=== PATIENT | female | born 1995 | race Hispanic/Latino ===

== ENCOUNTER 2024-12-01 20:19 | Inpatient (IN) | payer OTHER ==
[~2024-12-01] VITALS: Ht 157.5 cm; Wt 77.1 kg
[2024-12-01 21:13] LABS: BASOPHILS % 0.4 % (0.0-1.0); EOSINOPHILS % 4.9 % (0.0-6.0); LYMPHOCYTES % 32.8 % (18.0-39.1); MONOCYTES % 5.0 % (4.4-11.3); NEUTROPHILS % 56.7 % (38.7-80.0); RED CELL DISTRIBUTION WIDTH 12.0 % (11.7-14.4)
[2024-12-01 21:31] LABS: EST GLOMERULAR FILTRATION RATE 115.0 ML/MIN (>=60)
[2024-12-01] MEDS: ONDANSETRON HCL INJ 2MG/ML 2ML 2 MG/ML VIAL IV STA (21:38)
[2024-12-01] MEDS: SODIUM CHLORIDE 0.9% 1000ML 1,000 ML IV SCH (21:46)
[2024-12-02] VITALS (11 sets, daily range): BP systolic 95–130; BP diastolic 55–90; PULSE 75–105; RESP 16–20; TEMP 97.7–98.2; O2SAT 95–100
[2024-12-02] MEDS: KETOROLAC TROMETHAMINE 30 MG/ML VIAL IV STA (01:41)
[2024-12-02] MEDS: SODIUM CHLORIDE 0.9% 1000ML 1,000 ML IV SCH (02:35)
[2024-12-02] MEDS: ONDANSETRON HCL INJ 2MG/ML 2ML 2 MG/ML VIAL IV PRN (02:56)
[2024-12-02] MEDS: Morphine 2mg Syringe 2 MG/ML SYR IV PRN (02:56)
[2024-12-02 15:29] LABS: T3 UPTAKE 31.53 % (22.5-37.0)
[2024-12-02] MEDS: PROMETHAZINE 12.5MG/ NACL 0.9% 12.5 MG/50 ML BAG IV PRN (20:40)
[2024-12-02] MEDS: HYDROMORPHONE 1MG/1ML INJ IV PRN (20:40)
[2024-12-03] VITALS (7 sets, daily range): BP systolic 96–104; BP diastolic 50–65; PULSE 73–95; RESP 16–20; TEMP 97.8–98.6; O2SAT 98–100
[2024-12-03 05:33] LABS: BASOPHILS % 0.3 % (0.0-1.0); EOSINOPHILS % 5.9 % (0.0-6.0); LYMPHOCYTES % 34.3 % (18.0-39.1); MONOCYTES % 5.5 % (4.4-11.3); NEUTROPHILS % 53.7 % (38.7-80.0); RED CELL DISTRIBUTION WIDTH 11.9 % (11.7-14.4)
[2024-12-03 06:09] LABS: EST GLOMERULAR FILTRATION RATE 99.0 ML/MIN (>=60)
[2024-12-04] VITALS (8 sets, daily range): BP systolic 97–113; BP diastolic 66–84; PULSE 72–96; RESP 16–20; TEMP 97.8–98.3; O2SAT 96–100
[2024-12-04 01:03] LABS: AMPHETAMINES SCREEN,URINE NEGATIVE (NEGATIVE); OPIATES SCREEN,URINE POSITIVE (NEGATIVE)
[2024-12-04 01:04] LABS: CANNABINOIDS SCREEN,URINE NEGATIVE (NEGATIVE); COCAINE SCREEN,URINE NEGATIVE (NEGATIVE); METHADONE SCREEN, URINE NEGATIVE (NEGATIVE)
[2024-12-04] MEDS: PANTOPRAZOLE SOD 40 MG TABEC PO SCH (08:55)
[2024-12-04] MEDS ORDERED: CLONAZEPAM1 MG PO (09:21)
[2024-12-04] MEDS ORDERED: TIZANIDINE HCL4 MG PO (09:21)
[2024-12-04] MEDS ORDERED: HYDROCODONE/APAP 7.5MG-325MG 1 EA TAB PO PRN (14:00)
[2024-12-04] MEDS: CLONAZEPAM 1 MG TAB PO PRN (15:28)
[2024-12-04] MEDS ORDERED: TIZANIDINE HCL 4 MG TAB PO PRN (17:00)
[2024-12-05] VITALS (11 sets, daily range): BP systolic 102–129; BP diastolic 58–96; PULSE 84–110; RESP 16–20; TEMP 98–98.3; O2SAT 97–100
[2024-12-05 05:45] LABS: CHOL/HDL RATIO 5.5 (3.0-3.6); EST GLOMERULAR FILTRATION RATE 120.0 ML/MIN (>=60); LDL CHOLESTEROL 95.0 MG/DL (60-130); PHOSPHORUS 4.1 MG/DL (2.3-4.7)
[2024-12-06 00:43] VITALS: BP 99/60; PULSE 89; RESP 17; TEMP 97.9; O2SAT 100
[2024-12-06 04:23] VITALS: BP 107/59; PULSE 95; RESP 16; TEMP 97.9; O2SAT 100
[2024-12-06 08:18] VITALS: BP 101/71; PULSE 98; RESP 18; TEMP 98.6; O2SAT 98
[2024-12-06 10:45] VITALS: BP 101/71; PULSE 98; RESP 18; TEMP 98.6; O2SAT 98
== END 2024-12-06 10:51 | disposition home or self-care (01) | DRG 103 ==
LOC: ER 20:45 → ERHOLD 12-02 01:55 → MED/SURG 12-02 02:29 → OBSVTOIN 12-03 17:57
PROVIDERS: ADMIT Internal Medicine; ATTEND Internal Medicine
DX: G43.809 Other migraine, not intractable, without status migrainosus (principal); G90.A Postural orthostatic tachycardia syndrome [POTS]; G90.1 Familial dysautonomia [Riley-Day]; F43.10 Post-traumatic stress disorder, unspecified; I34.1 Nonrheumatic mitral (valve) prolapse; F41.9 Anxiety disorder, unspecified; R01.1 Cardiac murmur, unspecified; R10.13 Epigastric pain; R11.2 Nausea with vomiting, unspecified; R94.31 Abnormal electrocardiogram [ECG] [EKG]; R53.1 Weakness; M47.816 Spondylosis without myelopathy or radiculopathy, lumbar region; M47.817 Spondylosis without myelopathy or radiculopathy, lumbosacral region; G89.29 Other chronic pain; Z91.419 Personal history of unspecified adult abuse
CPT/HCPCS: 36415; 70450; 70544; 70551; 71045; 72125; 72131; 74176; 80048; 80053; 80061; 80307; 80320; 82550; 83036; 83735; 84100; 84436; 84443; 84479; 84484; 84702; 85025; 93005; 93306; 93880; 94799; 95819; 99284; G0378; J1171; J1885; J2270; J2405; J2470; J2550; J7030

== ENCOUNTER → 2024-12-26 | Outpatient (REF) | payer OTHER ==
[~2024-12-26] MED LIST: CLONAZEPAM1 MG PO; TIZANIDINE HCL4 MG PO
== END ==
LOC: EDSTATUS 13:00 → MRI 13:08
PROVIDERS: ATTEND Physical Medicine & Rehabilitation Pain Medicine
DX: M54.16 Radiculopathy, lumbar region (principal); M54.6 Pain in thoracic spine
CPT/HCPCS: 72146; 72148

== ENCOUNTER 2025-01-20 16:47 | Inpatient (IN) | payer OTHER ==
[~2025-01-20] VITALS: Ht 154.9 cm; Wt 83.9 kg
[2025-01-20] MEDS: DIPHENHYDRAMINE HCL INJ 50 MG/ML VIAL IV ONE (17:43)
[2025-01-20] MEDS: METHYLPREDNISOLONE SOD SUCC 125 MG/2ML VIAL IV STA (17:43)
[2025-01-20] MEDS: SODIUM CHLORIDE 0.9% 1000ML 1,000 ML IV STA (17:43)
[2025-01-20 17:55] LABS: BASOPHILS % 0.3 % (0.0-1.0); EOSINOPHILS % 2.5 % (0.0-6.0); LYMPHOCYTES % 24.6 % (18.0-39.1); MONOCYTES % 4.5 % (4.4-11.3); NEUTROPHILS % 67.8 % (38.7-80.0); RED CELL DISTRIBUTION WIDTH 11.9 % (11.7-14.4)
[2025-01-20] MEDS: FAMOTIDINE 20 MG/2 ML VIAL IV STA (18:05)
[2025-01-20 18:12] LABS: EST GLOMERULAR FILTRATION RATE 121.0 ML/MIN (>=60)
[2025-01-20] MEDS: DIAZEPAM INJ 5 MG/ML 2 ML IV STA (18:54)
[2025-01-20 20:41] VITALS: TEMP 98.1
[2025-01-20 21:00] VITALS: BP 122/84; PULSE 87; RESP 18; TEMP 98.1; O2SAT 100
[2025-01-20 21:22] VITALS: PULSE 88; RESP 16
[2025-01-20 21:28] VITALS: PULSE 92; RESP 18; O2SAT 100
[2025-01-20 21:54] VITALS: BP 122/84; PULSE 87; RESP 18; TEMP 98.1; O2SAT 100
[2025-01-20] MEDS: ONDANSETRON HCL INJ 2MG/ML 2ML 2 MG/ML VIAL IV PRN (22:37)
[2025-01-20] MEDS: SODIUM CHLORIDE 0.9% 1000ML 1,000 ML IV SCH (22:38)
[2025-01-20] MEDS: SODIUM CHLORIDE FLUSH 10 ML SYR IV PRN (22:38)
[2025-01-20] MEDS: Morphine 4mg INJECTION 4 MG/ML INJ IV PRN (22:38)
[2025-01-20 23:00] VITALS: BP 122/84; PULSE 87; RESP 19; TEMP 98.1; O2SAT 100
[2025-01-21] VITALS (12 sets, daily range): BP systolic 95–110; BP diastolic 58–75; PULSE 63–92; RESP 15–20; TEMP 97.8–98.4; O2SAT 98–100
[2025-01-21] MEDS: PROMETHAZINE 12.5MG/ NACL 0.9% 12.5 MG/50 ML BAG IV PRN (01:07)
[2025-01-21 06:59] LABS: BASOPHILS % 0.1 % (0.0-1.0); EOSINOPHILS % 0.0 % (0.0-6.0); LYMPHOCYTES % 8.5 % (18.0-39.1); MONOCYTES % 1.1 % (4.4-11.3); NEUTROPHILS % 89.9 % (38.7-80.0); RED CELL DISTRIBUTION WIDTH 11.9 % (11.7-14.4)
[2025-01-21] MEDS: DIAZEPAM INJ 5 MG/ML 2 ML IV STA (07:24)
[2025-01-21 07:32] LABS: EST GLOMERULAR FILTRATION RATE 124.0 ML/MIN (>=60)
[2025-01-21] MEDS ORDERED: ALBUTEROL SULF 0.083% NEB SOLN 3 ML NEB NEB PRN (17:45)
[2025-01-21] MEDS: DIPHENHYDRAMINE HCL INJ 50 MG/ML VIAL IV PRN (21:08)
[2025-01-21] MEDS: PROPRANOLOL HCL 10 MG TAB PO SCH (21:09)
[2025-01-21] MEDS: MECLIZINE HCL 12.5 MG TAB PO PRN (21:09)
[2025-01-22] VITALS (9 sets, daily range): BP systolic 90–100; BP diastolic 55–66; PULSE 55–84; RESP 17–20; TEMP 97.5–98; O2SAT 98–100
[2025-01-22] MEDS: CLONAZEPAM 1 MG TAB PO PRN (10:12)
[2025-01-22] MEDS ORDERED: POLYETHYLENE GLYCOL 3350 17 GM PACK PO PRN (11:15)
[2025-01-22] MEDS: DOCUSATE SODIUM 100 MG CAP PO ONE (12:13)
[2025-01-22] MEDS ORDERED: SUMATRIPTAN SUCCINATE 25 MG TAB PO PRN (12:15)
[2025-01-22] MEDS: SUMATRIPTAN SUCCINATE 25 MG TAB PO ONE (12:38)
[2025-01-22] MEDS: DOCUSATE SODIUM 100 MG CAP PO SCH (17:13)
[2025-01-22] MEDS: ACETAMIN/BUTALBITAL/CAFFEINE TAB PO PRN (21:21)
[2025-01-22] MEDS: PROPRANOLOL HCL 10 MG TAB PO SCH (21:22)
[2025-01-23] MEDS: SODIUM CHLORIDE 0.9% 1000ML 1,000 ML IV SCH (00:31)
[2025-01-23] MEDS: TIZANIDINE HCL 4 MG TAB PO PRN (00:31)
[2025-01-23 03:28] VITALS: BP 96/58; PULSE 76; RESP 18; TEMP 97.5; O2SAT 100
[2025-01-23 07:07] VITALS: PULSE 87; RESP 22; O2SAT 99
[2025-01-23 08:00] VITALS: BP 105/61; PULSE 66; RESP 18; TEMP 98.1; O2SAT 100
[2025-01-23 09:00] VITALS: BP 105/61; PULSE 66; RESP 18; TEMP 98.1; O2SAT 100
[2025-01-23 09:09] LABS: BASOPHILS % 0.4 % (0.0-1.0); EOSINOPHILS % 3.8 % (0.0-6.0); LYMPHOCYTES % 32.4 % (18.0-39.1); MONOCYTES % 5.2 % (4.4-11.3); NEUTROPHILS % 57.9 % (38.7-80.0); RED CELL DISTRIBUTION WIDTH 12.0 % (11.7-14.4)
[2025-01-23 09:37] LABS: EST GLOMERULAR FILTRATION RATE 122.0 ML/MIN (>=60)
[2025-01-23 12:00] VITALS: BP 96/63; PULSE 61; RESP 17; TEMP 98.2; O2SAT 100
[2025-01-23] MEDS ORDERED: INDERAL10 MG PO (13:56)
== END 2025-01-23 16:35 | disposition home or self-care (01) | DRG 916 ==
LOC: ER 17:30 → ERHOLD 20:53 → MED/SURG3 21:39
PROVIDERS: ADMIT Internal Medicine; ATTEND Internal Medicine
DX: T78.2XXA Anaphylactic shock, unspecified, initial encounter (principal); G90.A Postural orthostatic tachycardia syndrome [POTS]; F43.10 Post-traumatic stress disorder, unspecified; I95.9 Hypotension, unspecified; R09.02 Hypoxemia; R47.02 Dysphasia; K21.9 Gastro-esophageal reflux disease without esophagitis; K59.00 Constipation, unspecified; R22.0 Localized swelling, mass and lump, head; F32.A Depression, unspecified; F41.9 Anxiety disorder, unspecified; R53.81 Other malaise; R07.9 Chest pain, unspecified; J45.909 Unspecified asthma, uncomplicated; E66.9 Obesity, unspecified; Z91.414 Personal history of adult intimate partner abuse; Z88.1 Allergy status to other antibiotic agents; Z91.041 Radiographic dye allergy status; Z91.013 Allergy to seafood; Z88.8 Allergy status to other drugs, medicaments and biological substances
CPT/HCPCS: 36415; 71045; 80048; 80053; 82550; 84484; 85025; 85379; 93005; 93308; 94760; 94799; 99284; J1200; J1308; J2270; J2405; J2550; J2919; J3360; J7030

== ENCOUNTER 2025-02-08 18:48 | Emergency (ER) | payer OTHER ==
[~2025-02-08] VITALS: Ht 154.9 cm; Wt 79.4 kg
[~2025-02-08 18:48] MED LIST changes: +INDERAL10 MG PO
[2025-02-08 19:02] VITALS: TEMP 98.2
[2025-02-08 19:57] LABS: BASOPHILS % 0.2 % (0.0-1.0); EOSINOPHILS % 4.9 % (0.0-6.0); LYMPHOCYTES % 33.3 % (18.0-39.1); MONOCYTES % 3.2 % (4.4-11.3); NEUTROPHILS % 58.0 % (38.7-80.0); RED CELL DISTRIBUTION WIDTH 11.9 % (11.7-14.4)
[2025-02-08] MEDS: SODIUM CHLORIDE 0.9% 1000ML 1,000 ML IV STA (20:07)
[2025-02-08] MEDS: METHYLPREDNISOLONE SOD SUCC 40 MG/ML VIAL 1ML IV SCH (20:07)
[2025-02-08] MEDS: DIPHENHYDRAMINE HCL INJ 50 MG/ML VIAL IV STA (20:07)
[2025-02-08 20:21] LABS: EST GLOMERULAR FILTRATION RATE 119.0 ML/MIN (>=60)
[2025-02-08 21:10] LABS: AMPHETAMINES SCREEN,URINE NEGATIVE (NEGATIVE); CANNABINOIDS SCREEN,URINE NEGATIVE (NEGATIVE); COCAINE SCREEN,URINE NEGATIVE (NEGATIVE); METHADONE SCREEN, URINE NEGATIVE (NEGATIVE); OPIATES SCREEN,URINE NEGATIVE (NEGATIVE)
[2025-02-08 21:59] VITALS: PULSE 87; RESP 19
[2025-02-08] MEDS: MAGNESIUM/ALUMINUM/SIMETHICONE 30 ML UDC PO STA (23:12)
[2025-02-08] MEDS: BELLADONNA ALK/PHENOBARBITAL 5 ML UDC PO ONE (23:12)
[2025-02-08] MEDS: LIDOCAINE VISC 2% SOLN 15 ML UDC PO STA (23:12)
[2025-02-08 23:21] VITALS: BP 109/67; O2SAT 98
== END 2025-02-08 22:13 | disposition home or self-care (01) ==
LOC: ER 18:51
DX: R06.02 Shortness of breath (principal); R00.2 Palpitations; R09.89 Other specified symptoms and signs involving the circulatory and respiratory systems; R10.13 Epigastric pain; F41.9 Anxiety disorder, unspecified; R94.31 Abnormal electrocardiogram [ECG] [EKG]
CPT/HCPCS: 36415; 71045; 80053; 80307; 82550; 83690; 83880; 84484; 84702; 85025; 93005; 99284; J1200; J2919; J7030